=== PATIENT | female | born 1970 | race Caucasian/White ===

== ENCOUNTER 2021-08-19 21:37 | Emergency (ER) | payer OTHER ==
[~2021-08-19] VITALS: Ht 167.6 cm; Wt 61.7 kg
[~2021-08-19 21:37] MED LIST: IBUPROFEN600 MG PO; IBUPROFEN800 MG PO; MACROBID 100 M100 MG PO; NORCO 5-325 TA1 EACH PO
[2021-08-20] MEDS ORDERED: LODINE CAP 300300 MG PO (01:02)
[2021-08-20] MEDS ORDERED: ZOFRAN ODT 4 MG4 MG PO (01:02)
[2021-08-20] MEDS ORDERED: PROVENTIL HFA6.7 GM INH (01:02)
[2021-08-20] MEDS ORDERED: PHENERGAN 25 MG25 M1 PO (01:36)
== END 2021-08-20 03:50 | disposition home or self-care (01) ==
LOC: ER1 21:37
DX: U07.1 COVID-19 (principal); H61.22 Impacted cerumen, left ear; Z23 Encounter for immunization; Z88.8 Allergy status to other drugs, medicaments and biological substances
CPT/HCPCS: 0240U; 81001; 87081; 87086; 87880; 99283; M0245

== ENCOUNTER 2021-11-08 11:25 | Emergency (ER) | payer BC ==
[~2021-11-08 11:25] MED LIST changes: +LODINE CAP 300300 MG PO; +PHENERGAN 25 MG25 M1 PO; +PROVENTIL HFA6.7 GM INH; +ZOFRAN ODT 4 MG4 MG PO
== END 2021-11-08 12:12 | disposition home or self-care (01) ==
LOC: ER1 11:25
DX: K43.9 Ventral hernia without obstruction or gangrene (principal)
CPT/HCPCS: 96372; 99283; J1885